=== PATIENT | female | born 1970 | race Caucasian/White ===

== ENCOUNTER 2017-02-08 17:48 | Inpatient (IN) | payer BC ==
[~2017-02-08] VITALS: Ht 152.4 cm; Wt 77.1 kg
[~2017-02-08 17:48] MED LIST: ADVIL200 M1 PO; ASPIR-LOW81 MG PO; BENTYL10 MG PO; NOHOMEMEDS; ULTRAM50 MG PO; ZOFRAN ODT4 MG PO; ZOFRAN4 MG PO
[2017-02-08 18:41] LABS: HEMATOCRIT 40.3 % (36.0-46.0); MCH 25.8 PG (29.0-34.0); MCHC 32.8 G/DL (30.0-36.0); MCV 78.9 FL (83-99); MEAN PLAT.VOLUME 10.6 uM^3 (9.5-12.4); PLATELET COUNT 334 K/uL (156-360); RBC DIS.WIDTH-CV 12.4 % (11.8-14.6); RBC DIS.WIDTH-SD 35.5 % (39-53); RED BLOOD COUNT 5.11 M/uL (3.80-5.20); WHITE BLOOD COUNT 4.7 K/uL (4.1-10.2)
[2017-02-08 18:49] LABS: CHLORIDE 106 mEq/L (99-109); POTASSIUM 3.5 mEq/L (3.7-5.4); SODIUM 140 mEq/L (136-147)
[2017-02-08 18:50] LABS: GLUCOSE 124 mg/dL (70-99)
[2017-02-08 18:52] LABS: ANION GAP 14 MEQ/L (2-14)
[2017-02-08 18:54] LABS: GFR ESTIMATE (CALCULATED) 57 mL/min/
[2017-02-08 18:55] LABS: UREA NITROGEN (BUN) 11 mg/dL (9-23)
[2017-02-08 19:01] LABS: TROP-I INTERPRETATION NEGATIVE; TROPONIN-I < 0.01 ng/mL (0.0-0.30)
[2017-02-08] MEDS ORDERED: AMOXICILLIN875 MG PO (22:03)
[2017-02-09 00:51] VITALS: BP 139/82
[2017-02-09 02:42] LABS: INFLUENZA A VIRAL ANTIGEN NEGATIVE; INFLUENZA B VIRAL ANTIGEN NEGATIVE
[2017-02-09 04:17] LABS: METH RESISTANT S AUREUS PCR NEGATIVE (NEGATIVE)
[2017-02-09 04:19] LABS: PROBE CHECK PASS; SPECIMEN PROCESSING CONTROL PASS
[2017-02-09 07:18] VITALS: BP 136/86
[2017-02-09 09:36] LABS: HEMATOCRIT 39.2 % (36.0-46.0); MCH 25.7 PG (29.0-34.0); MCHC 31.4 G/DL (30.0-36.0); MEAN PLAT.VOLUME 10.6 uM^3 (9.5-12.4); PLATELET COUNT 265 K/uL (156-360); RBC DIS.WIDTH-CV 12.7 % (11.8-14.6); RBC DIS.WIDTH-SD 38.4 % (39-53); RED BLOOD COUNT 4.78 M/uL (3.80-5.20); WHITE BLOOD COUNT 4.1 K/uL (4.1-10.2)
[2017-02-09 09:48] LABS: ANION GAP 8 MEQ/L (2-14); CHLORIDE 106 MEQ/L (99-109); GFR ESTIMATE (CALCULATED) > 59 mL/min/; GLUCOSE 97 mg/dL (70-99); POTASSIUM 4.1 MEQ/L (3.7-5.4); SAMPLE HEMOLYSIS CHECK 0; SAMPLE ICTERIC CHECK 0; SAMPLE LIPEMIA CHECK 0; SODIUM 138 MEQ/L (136-147); UREA NITROGEN (BUN) 7 mg/dL (9-23)
[2017-02-09 12:38] LABS: APPEARANCE CLEAR/COLORLESS
[2017-02-09 12:43] LABS: RED CELL AREA COUNTED 18; RED CELL COUNT 1 /MM^3 (0-1); RED CELL DILUTION 1; WBC AREA COUNTED 18; WBC DILUTION 1; WHITE CELL COUNT 2 /MM^3 (0-5); WHITE CELL RAW COUNT 3
[2017-02-09 13:02] LABS: CSF EOSINOPHILS 0 % (0-25); MONO RAW COUNT 4; MONONUCLEAR WBC'S 100 % (50-90); POLYNUCLEAR WBC'S 0 % (0-3)
[2017-02-09 15:10] VITALS: BP 175/86
[2017-02-09 19:29] VITALS: BP 118/63
[2017-02-09 23:21] VITALS: BP 112/61
[2017-02-10 03:13] VITALS: BP 111/59
[2017-02-10 07:02] LABS: HEMATOCRIT 34.1 % (36.0-46.0); MCH 25.5 PG (29.0-34.0); MCHC 31.4 G/DL (30.0-36.0); MCV 81.2 FL (83-99); PLATELET COUNT 251 K/uL (156-360); RBC DIS.WIDTH-CV 12.8 % (11.8-14.6); RBC DIS.WIDTH-SD 38.1 % (39-53); WHITE BLOOD COUNT 4.1 K/uL (4.1-10.2)
[2017-02-10 07:12] VITALS: BP 149/87
[2017-02-10 08:24] VITALS: BP 133/75
[2017-02-10 08:39] LABS: INTERNAL CONTROL VALID? YES; MONOSPOT (MONONUCLEOSIS SEROL) NEGATIVE
[2017-02-10 08:48] LABS: ANION GAP 7 MEQ/L (2-14); CHLORIDE 108 MEQ/L (99-109); GFR ESTIMATE (CALCULATED) > 59 mL/min/; GLUCOSE 82 mg/dL (70-99); POTASSIUM 4.2 MEQ/L (3.7-5.4); SAMPLE HEMOLYSIS CHECK 0; SAMPLE ICTERIC CHECK 0; SAMPLE LIPEMIA CHECK 0; SODIUM 138 MEQ/L (136-147); UREA NITROGEN (BUN) 8 mg/dL (9-23)
[2017-02-10 10:32] VITALS: BP 133/68
[2017-02-10 11:16] VITALS: BP 122/72
[2017-02-10 15:22] VITALS: BP 136/78
== END 2017-02-10 18:11 | disposition home or self-care (01) | DRG 153 ==
LOC: EME 17:48 → EDOF 22:02 → 5WEST 02-09 00:46 → 2EAST 02-09 08:37 → 5WEST 02-09 08:37 → 2EAST 02-09 15:07
PROVIDERS: Emergency Medicine; Hospitalist; Internal Medicine; Internal Medicine Infectious Disease
DX: J02.0 Streptococcal pharyngitis (principal); G43.909 Migraine, unspecified, not intractable, without status migrainosus; Z87.440 Personal history of urinary (tract) infections; R06.02 Shortness of breath; Z86.14 Personal history of Methicillin resistant Staphylococcus aureus infection
CPT/HCPCS: 62270; 70450; 70553; 71275; 77003; 80048; 82945; 83605; 84157; 84484; 85027; 86308; 87040; 87070; 87205; 87502; 87641; 87651 90; 89051; 93005; 99281; 99285; G0378; J0696; J1885; J2270; J2405; J2765; J7030; J7050

== ENCOUNTER 2017-11-09 15:27 | Emergency (ER) | payer BC ==
[~2017-11-09] VITALS: Ht 172.7 cm; Wt 68.1 kg
[~2017-11-09 15:27] MED LIST changes: +AMOXICILLIN875 MG PO
[2017-11-09 16:35] LABS: HEMATOCRIT 40.6 % (36.0-46.0); HEMOGLOBIN 13.3 G/DL (11.9-15.5); MCH 26.1 PG (29.0-34.0); MCHC 32.8 G/DL (30.0-36.0); MCV 79.6 FL (83-99); PLATELET COUNT 290 K/uL (156-360); RBC DIS.WIDTH-CV 12.8 % (11.8-14.6); RBC DIS.WIDTH-SD 36.8 % (39-53); WHITE BLOOD COUNT 3.7 K/uL (4.1-10.2)
[2017-11-09 16:50] LABS: CHLORIDE 106 mEq/L (99-109); POTASSIUM 3.6 mEq/L (3.7-5.4); SODIUM 137 mEq/L (136-147)
[2017-11-09 16:54] LABS: GLUCOSE 100 mg/dL (70-99)
[2017-11-09 16:58] LABS: CREATININE 0.9 mg/dL (0.6-1.3); GFR ESTIMATE (CALCULATED) > 59 mL/min/
[2017-11-09 16:59] LABS: TROP-I INTERPRETATION NEGATIVE; TROPONIN-I < 0.01 ng/mL (0.0-0.30); UREA NITROGEN (BUN) 12 mg/dL (9-23)
[2017-11-09] MEDS ORDERED: COMPAZINE10 MG PO (18:37)
[2017-11-09 21:03] VITALS: BP 122/80
== END 2017-11-09 21:15 | disposition home or self-care (01) ==
LOC: EME 15:27
DX: G43.909 Migraine, unspecified, not intractable, without status migrainosus (principal); R07.89 Other chest pain; F41.9 Anxiety disorder, unspecified; E86.0 Dehydration; Z87.440 Personal history of urinary (tract) infections; Z88.2 Allergy status to sulfonamides; Z88.5 Allergy status to narcotic agent
CPT/HCPCS: 71046; 80048; 84484; 85027; 93005; 99281; 99285; J0780; J2060; J7040

== ENCOUNTER 2017-12-15 09:15 | Emergency (ER) | payer BC ==
[~2017-12-15] VITALS: Ht 152.4 cm; Wt 76.1 kg
[~2017-12-15 09:15] MED LIST changes: +COMPAZINE10 MG PO
[2017-12-15] MEDS ORDERED: MELOXICAM7.5 MG PO ×2 (10:00→10:01)
[2017-12-15] MEDS ORDERED: AMLODIPINE BESYL5 MG PO (10:00)
[2017-12-15 13:36] VITALS: BP 126/75
== END 2017-12-15 13:38 | disposition home or self-care (01) ==
LOC: EME 09:15
DX: G43.909 Migraine, unspecified, not intractable, without status migrainosus (principal); I10 Essential (primary) hypertension
CPT/HCPCS: 93005; 99281; 99284; J0780